=== PATIENT | male | born 2005 | race Caucasian/White ===

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

== ENCOUNTER 2025-01-24 21:26 | Emergency (ER) | payer SELFPAY ==
[2025-01-24] MEDS ORDERED: Ketorolac 60 MG/2 ML SDV IM ONE (23:38)
[2025-01-24] MEDS: Acetaminophen/HYDROcodone 325-5 MG Tab PO ONE (23:47)
[2025-01-24] MEDS: Lidocaine 2% Viscous Solution 15 ML UD TOP ONE (23:48)
== END 2025-01-25 00:18 | disposition home or self-care (01) ==
LOC: JD.ED 21:26
DX: H69.92 Unspecified Eustachian tube disorder, left ear (principal); F17.210 Nicotine dependence, cigarettes, uncomplicated; Z79.899 Other long term (current) drug therapy
CPT/HCPCS: 99282; A9270; J3490; J7512